=== PATIENT | female | born 1955 | race Caucasian/White ===

== ENCOUNTER 2016-08-07 18:46 | Inpatient (IN) | payer BC ==
--- NOTE | 2016-08-07 19:04 | PDOC ---
History of Present Illness - General History Source: Patient, EMS Exam Limitations: No Limitations - History of Present Illness Initial Comments: 08/07/16 19:46 The patient is a 61 year old female, BIBA with a significant past medical history of HTN and osteoarthritis, who presents to the emergency department with right hip pain since 3pm. As per EMS patient was working sitting, crossed her feet, and felt a pop in her right hip and pain. She reports after having a lot of pain has not been able to walk since. She ranks her pain intensity a 10/ 10 in her right hip. She reports now also having a deformity in her right thigh/ hip area. Patient reports just recently having a total right hip replacement ( performed by Dr.James Norton) about 2 weeks ago secondary to osteoarthritis. She reports since the surgery feeling fine with no problems or complications. She denies any lower extremity numbness and tingling. She denies any injury or recent trauma. She denies fever, chills, headache and dizziness. PAST SURGICAL HISTORY: RIGHT and LEFT THR. FAMILY HISTORY: No pertinent history. SOCIAL HISTORY: Patient lives with family and is employed. Current Smoker (half a pack a day). MEDICATIONS: Reviewed. ALLERGIES: As per nursing notes. ROS General: No fevers or chills, no weakness, no weight loss HEENT: No change in vision. No sore throat,. No ear pain CardioVascular: No chest pain or shortness of breath Respiratory:No cough, or wheezing. Gastrointestinal: No nausea, vomiting, diarrhea or constipation. No rectal bleeding Genitourinary: No dysuria, hematuria, or frequency Musculoskeletal: Yes right hip pain. No joint or muscle pain or swelling Neurologic: No headache, vertigo, dizziness or loss of consciousness Psychiatric: No depression Skin: No rashes or easy bruising Endocrine: no increased thirst or abnormal weight change Allergic: no skin or latex allergy All other systems reviewed and normal Exam: General: Well-nourished well-developed individual, in severe distress HEENT: Throat: Normal, tonsils normal, no erythema or exudate Neck: Supple, no meningeal signs, no lymphadenopathy Eyes: Pupils equal reactive and round, extraocular motion intact Chest: Nontender to palpation Cardiac: S1-S2 normal, regular rate and rhythm, no murmurs rubs or gallops Respiratory: Lungs clear to auscultation bilateral Abdomen: Soft, nondistended, normal bowel sounds, nontender to palpation diffusely Extremities:RLE externally rotated and shortened. Neurovascularly intact. Skin: No rashes Neuro: Alert and oriented x3, nonfocal exam, grossly intact. Psych: Normal mood and affect <Jeremias Montanez - Last Filed: 08/07/16 19:46> - General History Source: Patient Exam Limitations: No Limitations - History of Present Illness Initial Comments: 08/07/16 20:54 A portion of this note was documented by scribe services under my direction. I have reviewed the details of the note, within reason, and agree with the documentation. The case summary and management plan written by me. This is a 61-year-old female who is status post right hip replacement. Patient had a dual prosthesis and the inner portion of the prosthesis dislocated. Because of the nature of the prosthesis it will will need to be relocated and revised in the operating room. Patient was admitted under the hospitalist service and Dr. Mccann will take her to the OR for relocation and revision of the prosthesis. <Renea Uriarte I - Last Filed: 08/07/16 20:55> - General Chief Complaint: Pain Stated Complaint: RIGHT HIP PROTHESIS DISLOCATION Time Seen by Provider: 08/07/16 19:01 Past History <Jeremias Montanez - Last Filed: 08/07/16 19:46> - Past Medical History Anemia: No Asthma: No Cancer: No Cardiac Disorders: No CVA: No COPD: No CHF: No Dementia: No Diabetes: No GI Disorders: No Disorders: No HTN: Yes Hypercholesterolemia: No Liver Disease: No Seizures: No Thyroid Disease: No - Surgical History Abdominal Surgery: No Appendectomy: No Cardiac Surgery: No Cholecystectomy: No Lung Surgery: No Neurologic Surgery: No Orthopedic Surgery: Yes (L THR) - Psycho/Social/Smoking Cessation Hx Smoking History: Former smoker Have you smoked in the past 12 months: Yes If you are a former smoker, when did you quit?: 1 week ago Hx Alcohol Use: No Drug/Substance Use Hx: No Substance Use Type: None Hx Substance Use Treatment: No <Renea Uriarte I - Last Filed: 08/07/16 20:55> - Past Medical History Allergies/Adverse Reactions: Allergies Allergy/AdvReac Type Severity Reaction Status Date / Time No Known Allergies Allergy Verified 08/07/16 18:56 Home Medications: Ambulatory Orders Nebivolol HCl [Bystolic] 10 mg PO DAILY 07/16/16 Olmesartan/Amlodipin/Hcthiazid [Tribenzor 40-5-25 mg Tablet] 1 each PO DAILY 10/27 Aspirin [ASA -] 325 mg PO DAILY@0800 #40 tablet 07/23/16 Celecoxib [CeleBREX -] 200 mg PO BID #60 capsule 07/23/16 Multivitamins [Multivit ([facility] Formul[facility])] 1 tab PO DAILY tab 07/23/16 Oxycodone HCl/Acetaminophen [Percocet 5-325 mg Tablet] 1 - 2 tab PO Q4H PRN #60 tablet MDD 8 07/23/16 Pantoprazole Sodium [Protonix -] 40 mg PO DAILY #40 tablet.ec 07/23/16 Sennosides/Docusate Sodium [Pericolace -] 1 tablet PO BID tablet 07/23/16 Tramadol HCl [Ultram -] 50 mg PO Q4H PRN #90 tablet MDD 6 07/23/16 *Physical Exam - Vital Signs Last Vital Signs Temp Pulse Resp BP Pulse Ox 98.8 F 68 18 132/63 98 08/07/16 18:55 08/07/16 18:55 08/07/16 18:55 08/07/16 18:55 08/07/16 18:55 <Jeremias Montanez - Last Filed: 08/07/16 19:46> ED Treatment Course - LABORATORY CBC & Chemistry Diagram: 08/07/16 19:25 08/07/16 19:25 <Jeremias Montanez - Last Filed: 08/07/16 19:46> - LABORATORY CBC & Chemistry Diagram: 08/07/16 19:25 08/07/16 19:25 <Renea Uriarte I - Last Filed: 08/07/16 20:55> *DC/Admit/Observation/Transfer - Attestations Scribe Attestion: 08/07/16 19:20 Documentation prepared by Jeremias Montanez, acting as territory sales manager medical for Renea Uriarte MD. <O'Sabino,Jeremias - Last Filed: 08/07/16 19:46> - Discharge Dispostion Admit: Yes <Renea Uriarte I - Last Filed: 08/07/16 20:55> Diagnosis at time of Disposition: Dislocation of internal right hip prosthesis Qualifiers: Encounter type: initial encounter Qualified Code(s): T84.020A - Dislocation of internal right hip prosthesis, initial encounter - Discharge Dispostion Condition at time of disposition: Good - Referrals Referrals: Geovany Mccann MD [Primary Care Provider] -
[2016-08-07] MEDS ORDERED: morphine CARPU-JECT 2 MG/1 ML DISP.SYRIN IVPUSH ONE ×2 (19:07→20:05)
[2016-08-07] MEDS ORDERED: morphine CARPU-JECT 10 MG/1 ML DISP.SYRIN ONE (19:09)
[2016-08-07 19:42] LABS: BASOPHIL 0.7 % (0-2.0); EOSINOPHIL 1.1 % (0-4.5); MCH 29.8 pg (25.7-33.7); MCHC 32.8 g/dl (32.0-36.0); MEAN PLT VOLUME 7.9 fl (7.5-11.1); NEUTROPHILS 79.2 % (42.8-82.8); PLATELET COUNT 343 K/MM3 (134-434); RDW 13.2 % (11.6-15.6); WHITE BLOOD COUNT 10.5 K/mm3 (4.0-10.0)
[2016-08-07 21:26] LABS: ALBUMIN 3.7 g/dl (3.4-5.0); ANION GAP 11 (8-16); BILIRUBIN,TOTAL 0.2 mg/dL (0.2-1.0); CALCIUM 8.5 mg/dL (8.5-10.1); CO2 26 mmol/L (21-32); CREATININE 0.7 mg/dL (0.55-1.02); GLUCOSE,RANDOM 118 mg/dL (74-106); SGOT/AST 13 U/L (15-37); SGPT/ALT 22 U/L (12-78)
[2016-08-07 21:27] LABS: ALK PHOS 122 U/L (45-117)
[2016-08-07] MEDS ORDERED: ONDANSETRON 4 MG/2 ML VIAL IVPUSH PRN (21:48)
--- NOTE | 2016-08-07 21:49 | HP ---
CHIEF COMPLAINT: Right Hip Pain, Unable to Bear weight PCP: HISTORY OF PRESENT ILLNESS: This is a 61 y/o woman with a past medical history of Hypertension, OA. PSHx of : s/p R-THR (2 weeks ago), L- THR. Who presents to the emergency department with pain to right hip unable to bear weight x pm. Patient reports having R-THR [address] Geovany Mccann without incident. Patient states" I was sitting down at my desk at work I crossed my legs and I felt a pop". Patient reports being unable to bear weight on the extremity. Patient denies numbness or tingling to RLE. Patient denies fever. chills, cough, SOB, dizziness, headache, CP, AP, N/V/D, constipation, dysuria. ER course was notable for: (1) Xray R-Hip: Right Hip Dislocation (2) Glucose 118 (3) EKG- NSR with no ST or TWI Recent Travel: None PAST MEDICAL HISTORY: See HPI PAST SURGICAL HISTORY: See HPI Social History: Smoking: Cigarette 1/2 PPD x 10 yrs Alcohol: Socially- Wine Drugs: None Lives with spouse-employed Family History: Non-Contributory Allergies No Known Allergies Allergy (Verified 08/07/16 18:56) HOME MEDICATIONS: Medication Instructions Recorded Nebivolol HCl [Bystolic] 10 mg PO DAILY 07/16/16 Olmesartan/Amlodipin/Hcthiazid 1 each PO DAILY 07/16/16 [Tribenzor 40-5-25 mg Tablet] Aspirin [ASA -] 325 mg PO DAILY@0800 #40 tablet 07/23/16 Celecoxib [CeleBREX -] 200 mg PO BID #60 capsule 07/23/16 Multivitamins [Multivit ([facility] 1 tab PO DAILY tab 07/23/16 Formulary)] Oxycodone HCl/Acetaminophen 1 - 2 tab PO Q4H PRN #60 tablet 07/23/16 [Percocet 5-325 mg Tablet] MDD 8 Pantoprazole Sodium [Protonix -] 40 mg PO DAILY #40 tablet.ec 07/23/16 Sennosides/Docusate Sodium 1 tablet PO BID tablet 07/23/16 [Pericolace -] Tramadol HCl [Ultram -] 50 mg PO Q4H PRN #90 tablet MDD 6 07/23/16 REVIEW OF SYSTEMS CONSTITUTIONAL: Absent: fever, chills, diaphoresis, generalized weakness, malaise, loss of appetite, weight change HEENT: Absent: rhinorrhea, nasal congestion, throat pain, throat swelling, difficulty swallowing, mouth swelling, ear pain, eye pain, visual changes CARDIOVASCULAR: Absent: chest pain, syncope, palpitations, irregular heart rate, lightheadedness , peripheral edema RESPIRATORY: Absent: cough, shortness of breath, dyspnea with exertion, orthopnea, wheezing, stridor, hemoptysis GASTROINTESTINAL: Absent: abdominal pain, abdominal distension, nausea, vomiting, diarrhea, constipation, melena, hematochezia GENITOURINARY: Absent: dysuria, frequency, urgency, hesitancy, hematuria, flank pain, genital pain MUSCULOSKELETAL: right hip pain Absent: myalgia, arthralgia, joint swelling, back pain, neck pain SKIN: Absent: rash, itching, pallor HEMATOLOGIC/IMMUNOLOGIC: Absent: easy bleeding, easy bruising, lymphadenopathy, frequent infections ENDOCRINE: Absent: unexplained weight gain, unexplained weight loss, heat intolerance, cold intolerance NEUROLOGIC: Absent: headache, focal weakness or paresthesias, dizziness, unsteady gait, seizure, mental status changes, bladder or bowel incontinence PSYCHIATRIC: Absent: anxiety, depression, suicidal or homicidal ideation, hallucinations. PHYSICAL EXAMINATION Vital Signs - 24 hr 08/07/16 08/07/16 18:55 20:30 Temperature 98.8 F Pulse Rate 68 Pulse Rate [ 70 Apical] Respiratory 18 17 Rate Blood Pressure 132/63 Blood Pressure 130/58 [Right Arm] O2 Sat by Pulse 98 97 Oximetry (%) GENERAL: Awake, alert, and fully oriented, in no acute distress. HEAD: Normal with no signs of trauma. EYES: Pupils equal, round and reactive to light, extraocular movements intact, sclera anicteric, conjunctiva clear. No lid lag. EARS, NOSE, THROAT: Ears normal, nares patent, oropharynx clear without exudates. Moist mucous membranes. NECK: Normal range of motion, supple without lymphadenopathy, JVD, or masses. LUNGS: Breath sounds equal, clear to auscultation bilaterally. No wheezes, and no crackles. No accessory muscle use. HEART: Regular rate and rhythm, normal S1 and S2 without murmur, rub or gallop. ABDOMEN: Soft, nontender, not distended, normoactive bowel sounds, no guarding, no rebound, no masses. No hepatomegaly or splenomegaly. MUSCULOSKELETAL: LROM RLE. + right hip tenderness. +external rotation and shortening of right leg. Normal range of motion RUE, LUE, LLE joints. No bony deformities. No CVA tenderness. UPPER EXTREMITIES: 2+ pulses, warm, well-perfused. No cyanosis. No clubbing. Cap refill <2 seconds. No peripheral edema. LOWER EXTREMITIES: 2+ pulses, warm, well-perfused. No calf tenderness. +1 pitting to R>L peripheral edema. NEUROLOGICAL: Cranial nerves II-XII intact. Normal speech. Gait not observed. PSYCHIATRIC: Cooperative. Good eye contact. Appropriate mood and affect. SKIN: Warm, dry, normal turgor, no rashes or lesions noted. Laboratory Results - last 24 hr 08/07/16 08/07/16 19:25 19:25 WBC 10.5 H RBC 3.68 Hgb 11.0 Hct 33.5 MCV 91.0 MCHC 32.8 RDW 13.2 Plt Count 343 D MPV 7.9 Neutrophils % 79.2 Lymphocytes % 13.4 Monocytes % 5.6 Eosinophils % 1.1 Basophils % 0.7 Sodium 143 Potassium 4.1 Chloride 106 Carbon Dioxide 26 Anion Gap 11 BUN 27 H Creatinine 0.7 Creat Clearance w eGFR > 60 Random Glucose 118 H Calcium 8.5 Total Bilirubin 0.2 AST 13 L ALT 22 Alkaline Phosphatase 122 H Total Protein 7.0 Albumin 3.7 ASSESSMENT/PLAN: This is a 61 y/o female with a PMHx of HTN, OA, s/p R-THR. Presented to the ED with R- Hip pain. Admitted for Dislocation of the Right Prosthesis for further evaluation of their emergent condition Plan: 1. Ortho: Dislocation of the Right Prosthesis - s/p R-THR x 2 weeks - Xray R- hip- Dislocation of the prosthesis with the femoral head superior to the acetabulum. No fx - Ortho following- OR tomorrow - Morphine given in ED - Pre-op labs added- Type N Screen, PT/INR - Chest Xray-pending - EKG- NSR no ST or TWI abnormalities - NPO - Continue Morphine prn - Zofran prn - PT, when cleared by Ortho - DVT Prophylaxis - Incentive spirometry - CBC, BMP in am - Monitor vitals 2. HTN - Monitor BP - Hold home med for now, restart post surgery 3. Elevated Glucose level - Likely secondary to metabolic syndrome - HgBA1C in am 4. F/E/N - NS@60cc/hr - Replete lytes prn - NPO 5. DVT Prophylaxis - SCDs - Lovenox SQ Code Status: Full Code Problem List - Problem (1) Dislocation of internal right hip prosthesis Code(s): T84.020A - DISLOCATION OF INTERNAL RIGHT HIP PROSTHESIS, INIT ENCNTR Qualifiers: Encounter type: initial encounter Qualified Code(s): T84.020A - Dislocation of internal right hip prosthesis, initial encounter (2) Osteoarthritis of right hip Code(s): M16.11 - UNILATERAL PRIMARY OSTEOARTHRITIS, RIGHT HIP Qualifiers: Osteoarthritis type: primary Qualified Code(s): M16.11 - Unilateral primary osteoarthritis, right hip (3) HTN (hypertension) Code(s): I10 - ESSENTIAL (PRIMARY) HYPERTENSION (4) Elevated glucose level Code(s): R73.09 - OTHER ABNORMAL GLUCOSE (5) DVT prophylaxis Code(s): NBF6271 - Visit type - Emergency Visit Emergency Visit: Yes ED Registration Date: 08/07/16 Care time: The patient presented to the Emergency Department on the above date and was hospitalized for further evaluation of their emergent condition. - New Patient This patient is new to me today: Yes Date on this admission: 08/07/16 - Critical Care Critical Care patient: No
[2016-08-07] MEDS ORDERED: ROPIVICAINE 0.2%/MORPH PF/KETOROLAC - 51ML DISP.SYRINGE IA ONE (22:29)
[2016-08-07] MEDS ORDERED: oxyCODONE HCL 5 MG TABLET PO PRN ×2 (22:31→22:33)
[2016-08-07] MEDS ORDERED: MAG HYDROX/AL HYDROX/SIMETH 355 ML ORAL.SUSP PO PRN (22:31)
[2016-08-07] MEDS ORDERED: ONDANSETRON 4 MG/2 ML VIAL IVPB PRN (22:31)
[2016-08-07] MEDS ORDERED: oxyCODONE HCL 10 MG SUSTAINED ACTING TABLET PO ONE (22:33)
[2016-08-07] MEDS ORDERED: LACTATED RINGERS SOLUTION 1,000 ML IV SCH (22:45)
[2016-08-07 22:51] LABS: INR 1.09 (0.82-1.09); PROTHROMBIN TIME (PATIENT) 11.9 SEC (10.2-13.0)
[2016-08-07] MEDS: ACETAMINOPHEN 325 MG TABLET (FP) PO SCH (23:00)
[2016-08-07] MEDS: traMADol HCL 50 MG TABLET PO SCH (23:00)
[2016-08-07] MEDS: morphine CARPU-JECT 4 MG/1 ML DISP.SYRIN IVPUSH PRN (23:45)
[2016-08-07 23:56] VITALS: BMI 32.3
[2016-08-08] MEDS: DEXTROSE 5%-0.45% SALINE 1,000 ML IV SCH (00:12)
[2016-08-08] MEDS: CEFAZOLIN 1 GM/D5W 50 ML IVPB SCH ×3 (03:51→15:27)
[2016-08-08] MEDS: traMADol HCL 50 MG TABLET PO SCH ×3 (05:06→20:44)
[2016-08-08] MEDS: ACETAMINOPHEN 325 MG TABLET (FP) PO SCH ×4 (05:06→22:23)
[2016-08-08] MEDS: morphine CARPU-JECT 4 MG/1 ML DISP.SYRIN IVPUSH PRN (05:45)
[2016-08-08 08:27] LABS: BASOPHIL 0.6 % (0-2.0); EOSINOPHIL 2.3 % (0-4.5); MCH 29.4 pg (25.7-33.7); MCHC 32.4 g/dl (32.0-36.0); MEAN CELL VOLUME 90.9 fl (80-96); MEAN PLT VOLUME 7.9 fl (7.5-11.1); NEUTROPHILS 70.3 % (42.8-82.8); PLATELET COUNT 280 K/MM3 (134-434); RDW 12.8 % (11.6-15.6); WHITE BLOOD COUNT 8.2 K/mm3 (4.0-10.0)
[2016-08-08 08:33] LABS: CALCIUM 8.5 mg/dl (8.4-10.2); CREATININE 0.7 mg/dl (0.6-1.3)
--- NOTE | 2016-08-08 09:05 | CONSULT ---
Consult Consult Specialty:: Orthopedics Reason for Consultation:: Right hip dislocation - Past Medical History Cardio/Vascular: Yes: HTN ...: No - Past Surgical History Past Surgical History: Yes: Joint Replacement - Alcohol/Substance Use Hx Alcohol Use: No - Smoking History Smoking history: Former smoker Have you smoked in the past 12 months: Yes Aproximately how many cigarettes per day: 10 If you are a former smoker, when did you quit?: 1 week ago Home Medications - Allergies Allergies/Adverse Reactions: Allergies Allergy/AdvReac Type Severity Reaction Status Date / Time No Known Allergies Allergy Verified 08/07/16 18:56 - Home Medications Home Medications: Ambulatory Orders Nebivolol HCl [Bystolic] 10 mg PO DAILY 07/16/16 Olmesartan/Amlodipin/Hcthiazid [Tribenzor 40-5-25 mg Tablet] 1 each PO DAILY 10/27 Aspirin [ASA -] 325 mg PO DAILY@0800 #40 tablet 07/23/16 Celecoxib [CeleBREX -] 200 mg PO BID #60 capsule 07/23/16 Multivitamins [Multivit ([facility] Formul[facility])] 1 tab PO DAILY tab 07/23/16 Oxycodone HCl/Acetaminophen [Percocet 5-325 mg Tablet] 1 - 2 tab PO Q4H PRN #60 tablet MDD 8 07/23/16 Pantoprazole Sodium [Protonix -] 40 mg PO DAILY #40 tablet.ec 07/23/16 Sennosides/Docusate Sodium [Pericolace -] 1 tablet PO BID tablet 07/23/16 Tramadol HCl [Ultram -] 50 mg PO Q4H PRN #90 tablet MDD 6 07/23/16 Physical Exam Vital Signs: Vital Signs Temperature 98.7 F 08/08/16 05:44 Pulse Rate 67 08/08/16 05:44 Respiratory Rate 17 08/08/16 08:55 Blood Pressure 127/38 08/08/16 05:44 O2 Sat by Pulse Oximetry (%) 96 08/08/16 08:55 Labs: CBC, BMP 08/08/16 07:27 08/08/16 07:27 Assessment/Plan 61yo female s/p right LEE 07/21/16. Pt did well postop, felt so much better that she returned to work this week, 2 wks after surgery. She was sitting at her desk and crossed her legs and the hip dislocated. BIBA to ER. Pt seen and examined by me in ER last night. Afebrile Gen: NAD, awake/alert/pleasant RLE: shortened, externally rotated. 5/5 GS/TA/EHL/FHL SILT L2-S1 toes warm Xray right hip - prosthetic hip dislocation. She has a dual mobility head in place and it appears that she has had an intraprosthetic dislocation, as I do not see the outer plastic head still attached to the smaller inner metal head. A/P 61yo female with right LEE dislocation 1. Findings discussed with the pt and her . 2. To me this looks like an intraprosthetic dislocation. That would not be reducible in the ER and would require surgery to revise it. 3. Pt on the OR schedule for 3pm today 4. STAT CT right hip ordered to evaluate intraprosthetic dislocation - specifically, if the outer plastic head has , is it still in the acetabulum or is it lodged in the soft tissues somewhere? If so, where is it because it will need to be retrieved surgically. 5. NPO
[2016-08-08] MEDS: NICOTINE 14 MG/24 HOURS TOPICAL PATCH TD SCH (09:10)
[2016-08-08] MEDS: PANTOPRAZOLE 40 MG TABLET (FP) PO SCH (09:12)
[2016-08-08] MEDS ORDERED: HYDROmorphone HCL CARPU-JECT 2 MG/1 ML DISP.SYRIN IVPB ONE (09:15)
--- NOTE | 2016-08-08 09:58 | PN ---
[id number] is a 61y/o female with past medical history of Hypertension, OA. PSHx of: s/p R-THR (07/21/16), L- THR. patient was admitted from the emergency department for a right hip dislocation. Vital Signs Period Temp Pulse Resp BP Sys/Martinez Pulse Ox Last 24 Hr 98.4 F-98.7 F 67-70 16-17 119-127/38-58 96-96 GENERAL: The patient is awake, alert, and fully oriented, anxious . HEAD: Normal with no signs of trauma. EYES: PERRL, extraocular movements intact, sclera anicteric, conjunctiva clear. No ptosis. ENT: Ears normal, nares patent, oropharynx clear without exudates, moist mucous membranes. NECK: Trachea midline, full range of motion, supple. LUNGS: Breath sounds equal, clear to auscultation bilaterally, no wheezes, no crackles, no accessory muscle use. HEART: Regular rate and rhythm, S1, S2 without murmur, rub or gallop. ABDOMEN: Soft, nontender, nondistended, normoactive bowel sounds, no guarding, no rebound, no hepatosplenomegaly, no masses. EXTREMITIES: 2+ pulses, warm, well-perfused, no edema. RIGHT LOWER EXTREMITY: right leg externally rotated and shortened, less than 3 second capillary refill, + 3 pedal pulse NEUROLOGICAL: Cranial nerves II through XII grossly intact. Normal speech, gait not observed. PSYCH: Normal mood, normal affect. SKIN: Warm, dry, normal turgor, no rashes or lesions noted Laboratory Results - last 24 hr 08/07/16 08/07/16 08/07/16 22:13 22:13 22:13 WBC RBC Hgb Hct MCV MCHC RDW Plt Count MPV Neutrophils % Lymphocytes % Monocytes % Eosinophils % Basophils % INR 1.09 Sodium Potassium Chloride Carbon Dioxide Anion Gap BUN Creatinine Random Glucose Calcium Blood Type A POSITIVE A POSITIVE Antibody Screen Negative 08/08/16 08/08/16 07:27 07:27 WBC 8.2 RBC 3.31 L Hgb 9.8 L D Hct 30.1 L MCV 90.9 MCHC 32.4 RDW 12.8 Plt Count 280 MPV 7.9 Neutrophils % 70.3 Lymphocytes % 19.8 D Monocytes % 7.0 Eosinophils % 2.3 D Basophils % 0.6 INR Sodium 139 Potassium 3.8 Chloride 104 Carbon Dioxide 27 Anion Gap 8 BUN 23 H Creatinine 0.7 Random Glucose 118 H Calcium 8.5 Blood Type Antibody Screen Active Medications Generic Name Dose Route Start Last Admin Trade Name Freq PRN Reason Stop Dose Admin Acetaminophen 650 mg 08/07/16 22:45 08/08/16 10:00 Tylenol - PO 08/10/16 22:31 650 mg Q6H KASH Administration Al Hydroxide/Mg Hydroxide 30 ml 08/07/16 22:31 Mylanta Suspension - PO Q6HPO PRN DYSPEPSIA Amlodipine Besylate 5 mg 08/08/16 11:15 Norvasc - PO DAILY KASH Dextrose/Sodium Chloride 1,000 mls @ 75 mls/hr 08/07/16 21:45 08/08/16 00:12 D5-1/2ns - IV 75 mls/hr ASDIR KASH Administration Cefazolin Sodium 50 mls @ 100 mls/hr 08/08/16 03:00 08/08/16 09:12 Ancef 1 Gm Premixed Ivpb - IVPB 08/08/16 15:29 100 mls/hr Q6H-IV KASH Administration Multivitamins/Minerals/Vitamin C 1 tab 08/08/16 11:00 Tab-A-Vit - PO DAILY KASH Nebivolol 10 mg 08/08/16 11:00 Bystolic - PO DAILY KASH Nicotine 14 mg 08/08/16 10:00 08/08/16 09:10 Nicoderm Patch - TD 14 mg DAILY KASH Administration Ondansetron HCl 4 mg 08/07/16 21:48 Zofran Injection IVPUSH Q6H PRN NAUSEA AND/OR VOMITING Ondansetron HCl 4 mg 08/07/16 22:31 Zofran Injection IVPB Q6H PRN NAUSEA Oxycodone HCl 10 mg 08/08/16 10:00 08/08/16 10:50 Oxycontin - PO Not Given BID KASH Oxycodone HCl 5 mg 08/07/16 22:31 Roxicodone - PO 08/10/16 22:32 Q4H PRN PAIN LEVEL 1-5 Pantoprazole Sodium 40 mg 08/08/16 10:00 08/08/16 09:12 Protonix - PO 40 mg DAILY KASH Administration Valsartan 320 mg 08/09/16 10:00 Diovan - PO DAILY KASH IMAGING chest xray, no infilitrates no effusion noted xray of hip/pelvis- dislocation of prosthesis CT/lower extremity w/o contrast: superior and lateral subluxation of the prosthetic right femoral head into the soft tissue ASSESSMENT/PLAN: 1) ortho: - s/p right THR (07/21/16), CT scan of lower extremity reviewed, case discussed with orthopedist Dr. Mccann, pending OR today - prn oxycodone with standing dose oxycodone - keep npo ivf - incentive spirometer 2) CARD hypertension - continue diovan (subsition for benicar), bystolic and norvasc - b/p at goal - ekg, nsr normal axis, no ischemic changes 3) GI - PMH of gerd continue protonix f/e/n - d5ns @ 75ml/hr - replete lytes prn ppx - protonix - hold ac for pending or - scd - incentive spirometer dispo: requires inpatient care full code Visit type - Emergency Visit Emergency Visit: Yes ED Registration Date: 08/07/16 Care time: The patient presented to the Emergency Department on the above date and was hospitalized for further evaluation of their emergent condition. - New Patient This patient is new to me today: No - Critical Care Critical Care patient: No - Discharge Referral Referred to [facility] Med [facility] No
--- NOTE | 2016-08-08 10:00 | EKG ---
Test Reason : Blood Pressure : / mmHG Vent. Rate : 071 BPM Atrial Rate : 071 BPM P-R Int : 170 ms QRS Dur : 096 ms QT Int : 422 ms P-R-T Axes : 047 013 002 degrees QTc Int : 458 ms NORMAL SINUS RHYTHM NO PREVIOUS ECGS AVAILABLE Confirmed by IGOR RICHARD MD ([id number]) on 08/08/2016 9:59:51 AM Referred By: CARIN Confirmed By:IGOR RICHARD MD
[2016-08-08 10:14] LABS: PH,URINE 5.5 (4.5-8); URINE APPEARANCE Clear; URINE BILIRUBIN Negative (NEGATIVE); URINE BLOOD Negative (NEGATIVE); URINE COLOR YELLOW; URINE GLUCOSE (UA) Negative (NEGATIVE); URINE KETONE Negative (NEGATIVE); URINE LEUK ESTERASE Negative (NEGATIVE); URINE NITRITE Negative (NEGATIVE); URINE PROTEIN Negative (NEGATIVE); URINE UROBILINOGEN 0.2 E.U/dl (0.2-1.0)
[2016-08-08] MEDS: oxyCODONE HCL 10 MG SUSTAINED ACTING TABLET PO SCH ×2 (10:50→22:23)
[2016-08-08] MEDS ORDERED: ceFAZolin SODIUM 1 GM VIAL ONE ×2 (14:14→15:55)
[2016-08-08] MEDS: MULTIVITAMINS (DAILY MVI) TABLET (FP) PO SCH (15:27)
[2016-08-08] MEDS: amLODIPine BESYLATE 5 MG TABLET (FP) PO SCH (15:28)
[2016-08-08] MEDS: NEBIVOLOL 10 MG TABLET (FP) PO SCH (15:28)
[2016-08-08] MEDS ORDERED: ONDANSETRON 4 MG/2 ML VIAL ONE (15:40)
[2016-08-08] MEDS ORDERED: ROCURONIUM BROMIDE 50 MG/5 ML VIAL ONE ×2 (15:40→17:00)
[2016-08-08] MEDS ORDERED: MIDAZOLAM HCL 2 MG/2 ML SINGLE DOSE VIAL ONE (15:40)
[2016-08-08] MEDS ORDERED: PROPOFOL 20 ML ONE (15:40)
[2016-08-08] MEDS ORDERED: DEXAMETHASONE SOD PHOSPHATE 4 MG/1 ML VIAL ONE (15:40)
[2016-08-08] MEDS ORDERED: SUCCINYLCHOLINE CHLORIDE 200 MG/10 ML VIAL ONE (15:41)
[2016-08-08] MEDS ORDERED: ROPIVICAINE 0.2%/MORPH PF/KETOROLAC - 51ML DISP.SYRINGE IA ONE ×2 (16:37→17:12)
[2016-08-08] MEDS ORDERED: BUPIVACAINE HCL/PF 0.5% (5MG/ML) 10 ML VIAL ONE (16:37)
[2016-08-08] MEDS ORDERED: TRANEXAMIC ACID 1000 MG/10 ML VIAL ONE ×2 (16:42)
[2016-08-08] MEDS ORDERED: VANCOMYCIN 1,000 MG VIAL (RESTRICTED TO ID ONLY) IVPB ONE (17:11)
[2016-08-08] MEDS ORDERED: BUPIVACAINE HCL/PF 0.5% (5MG/ML) 10 ML VIAL IJ ONE (17:11)
[2016-08-08] MEDS ORDERED: TRANEXAMIC ACID 1000 MG/10 ML VIAL IVPUSH ONE (17:19)
[2016-08-08] MEDS ORDERED: GLYCOPYRROLATE 0.2 MG/1 ML VIAL ONE (18:00)
[2016-08-08] MEDS ORDERED: NEOSTIGMINE METHYLSULFATE 0.5 MG/ML - 10 ML MDV ONE (18:00)
[2016-08-08] MEDS ORDERED: HYDROmorphone HCL CARPU-JECT 1 MG/1 ML DISP.SYRIN IVPUSH PRN (18:50)
--- NOTE | 2016-08-08 19:00 | OP ---
Operative Note - Note: Operative Date: 08/08/16 Pre-Operative Diagnosis: Right prosthetic hip dislocation Operation: Open reduction of right hip dislocation with exchange of head ball. Post-Operative Diagnosis: Same as Pre-op Surgeon: Geovany Mccann Anesthesia: General, Local Estimated Blood Loss (mls): 150
[2016-08-08] MEDS ORDERED: VANCOMYCIN 1,250 MG in DEXTROSE 5%-WATER - 250 ML IVPB ONE (19:01)
[2016-08-08] MEDS ORDERED: MAG HYDROX/AL HYDROX/SIMETH 30 ML UNIT-DOSE CUP PO PRN (19:01)
[2016-08-08] MEDS ORDERED: MAGNESIUM HYDROX 2400MG/30ML ORAL SUSPENSION 30 ML CUP PO PRN (19:01)
[2016-08-08] MEDS ORDERED: oxyCODONE HCL 5 MG TABLET PO PRN (19:07)
[2016-08-08] MEDS ORDERED: LACTATED RINGERS SOLUTION 1,000 ML IV SCH (19:15)
[2016-08-08] MEDS: KETOROLAC TROMETHAMINE 30 MG/1 ML VIAL IVPUSH SCH (19:40)
[2016-08-08] MEDS: CELECOXIB 200 MG CAPSULE PO SCH (22:22)
[2016-08-08] MEDS: GABAPENTIN 300 MG CAPSULE (FP) PO SCH (22:22)
[2016-08-08] MEDS: SENNOSIDES/DOCUSATE COMBO (SENNA PLUS) TABLET (UD) PO SCH (22:23)
[2016-08-09] MEDS: KETOROLAC TROMETHAMINE 30 MG/1 ML VIAL IVPUSH SCH ×3 (00:39→13:25)
[2016-08-09] MEDS: traMADol HCL 50 MG TABLET PO SCH ×4 (00:39→20:15)
[2016-08-09] MEDS: CEFAZOLIN 2 GM in DEXTROSE 5%-WATER - 50 ML IVPB SCH ×2 (03:30→10:07)
[2016-08-09] MEDS: ACETAMINOPHEN 325 MG TABLET (FP) PO SCH ×4 (05:00→22:12)
[2016-08-09] MEDS: ASPIRIN 325 MG TABLET PO SCH (08:00)
[2016-08-09 08:34] LABS: CALCIUM 8.8 mg/dl (8.4-10.2); CREATININE 0.8 mg/dl (0.6-1.3)
[2016-08-09 08:40] LABS: MCH 29.7 pg (25.7-33.7); MCHC 33.8 g/dl (32.0-36.0); MEAN PLT VOLUME 7.9 fl (7.5-11.1); PLATELET COUNT 264 K/MM3 (134-434); RDW 13.1 % (11.6-15.6); WHITE BLOOD COUNT 9.6 K/mm3 (4.0-10.0)
[2016-08-09] MEDS: SENNOSIDES/DOCUSATE COMBO (SENNA PLUS) TABLET (UD) PO SCH (10:00)
[2016-08-09] MEDS: NEBIVOLOL 10 MG TABLET (FP) PO SCH (10:08)
[2016-08-09] MEDS: CELECOXIB 200 MG CAPSULE PO SCH ×2 (10:08→22:12)
[2016-08-09] MEDS: VALSARTAN 160 MG TABLET (UD) PO SCH (10:08)
[2016-08-09] MEDS: NICOTINE 14 MG/24 HOURS TOPICAL PATCH TD SCH (10:09)
[2016-08-09] MEDS: GABAPENTIN 300 MG CAPSULE (FP) PO SCH ×2 (10:09→22:12)
[2016-08-09] MEDS: amLODIPine BESYLATE 5 MG TABLET (FP) PO SCH (10:10)
[2016-08-09] MEDS: PANTOPRAZOLE 40 MG TABLET (FP) PO SCH (10:10)
[2016-08-09] MEDS: MULTIVITAMINS (DAILY MVI) TABLET (FP) PO SCH (10:10)
[2016-08-09] MEDS ORDERED: VANCOMYCIN 1,250 MG in DEXTROSE 5%-WATER - 250 ML IVPB SCH (11:00)
--- NOTE | 2016-08-09 11:04 | PN ---
Progress Note (short form) - Note Progress Note: Pt seen and examined. Comfortable. No complaints. AVSS Selected Entries 08/09/16 06:00 Temperature 99.1 F Pulse Rate 70 Respiratory 19 Rate Blood Pressure 141/55 O2 Sat by Pulse 95 Oximetry (%) Laboratory Tests 08/09/16 08/09/16 07:48 07:48 WBC 9.6 Hgb 9.0 L Hct 26.7 L Plt Count 264 Sodium 139 Potassium 4.2 Chloride 104 Carbon Dioxide 27 Anion Gap 8 BUN 27 H Creatinine 0.8 Random Glucose 108 H Calcium 8.8 Gen: NAD, AAO RLE: c/d/i, NVID A/P 61yo female POD#1 s/p open reduction of right prosthetic hip dislocation with revision to higher offset head ball 1. PT/OOB - WBAT RLE 2. Do not externally rotate right hip past 30 degrees for 6 weeks. 3. Plan for d/c home tomorrow with home PT - will need to set this up again because pt refused home pt appt when they called 2 weeks ago because she felt that she didn't need it. I stressed to her that it is important to have the therapist come so that they can observe her ambulating and correct any poor form.
[2016-08-09] MEDS: oxyCODONE HCL 10 MG SUSTAINED ACTING TABLET PO SCH (11:52)
--- NOTE | 2016-08-09 20:18 | PN ---
Physical Exam: SUBJECTIVE: Patient seen and examined at bedside. Has minimal amount of pain. OBJECTIVE: Vital Signs Period Temp Pulse Resp BP Sys/Martinez Pulse Ox Last 24 Hr 98.5 F-99.1 F 64-70 12-19 108-143/55-59 94-100 GENERAL: The patient is awake, alert, and fully oriented, in no acute distress. HEAD: Normal with no signs of trauma. EYES: PERRL, extraocular movements intact, sclera anicteric, conjunctiva clear. No ptosis. LUNGS: Breath sounds equal, clear to auscultation bilaterally, no wheezes, no crackles, no accessory muscle use. HEART: Regular rate and rhythm, S1, S2 without murmur, rub or gallop. ABDOMEN: Soft, nontender, nondistended, normoactive bowel sounds, no guarding, no rebound EXTREMITIES: 2+ pulses, warm, well-perfused, no edema. TEDs & SCDs; surgical dressing in place right hip, c/d/i NEUROLOGICAL: Cranial nerves II through XII grossly intact. Normal speech, gait not observed. Laboratory Results - last 24 hr 08/09/16 08/09/16 07:48 07:48 WBC 9.6 RBC 3.04 L Hgb 9.0 L Hct 26.7 L MCV 88.0 MCHC 33.8 RDW 13.1 Plt Count 264 MPV 7.9 Sodium 139 Potassium 4.2 Chloride 104 Carbon Dioxide 27 Anion Gap 8 BUN 27 H Creatinine 0.8 Random Glucose 108 H Calcium 8.8 ASSESSMENT/PLAN: 61 year-old woman with a PMH of HTN, OA, s/p right THR (07/21/16) s/p right prosthetic hip dislocation s/p open reduction with exchange of hip ball. Right prosthetic hip dislocation s/p open reduction with exchange of hip ball --doing well --afebrile, no leukocytosis, wound c/d/i --cleared by surgery for discharge tomorrow Hypertension --BP well-controlled --continue valsartan, bystolic, amlodipine F/E/N Fluids: PO intake adequate Electrolytes: replete as indicated Nutrition: low sodium diet DVT prophylaxis: SCDs, TEDs Dispo: continues to require inpatient care. Likely discharge tomorrow with PT. Full Code. Visit type - Emergency Visit Emergency Visit: Yes ED Registration Date: 08/07/16 Care time: The patient presented to the Emergency Department on the above date and was hospitalized for further evaluation of their emergent condition. - New Patient This patient is new to me today: Yes Date on this admission: 08/09/16 - Critical Care Critical Care patient: No
[2016-08-10] MEDS: DEXTROSE 5%-0.45% SALINE 1,000 ML IV SCH (00:52)
[2016-08-10] MEDS: SENNOSIDES/DOCUSATE COMBO (SENNA PLUS) TABLET (UD) PO SCH ×2 (00:53→09:52)
[2016-08-10] MEDS: traMADol HCL 50 MG TABLET PO SCH ×2 (01:53→08:43)
[2016-08-10] MEDS: ACETAMINOPHEN 325 MG TABLET (FP) PO SCH ×2 (05:38→09:56)
[2016-08-10 06:20] VITALS: BP 136/58; PULSE 65; TEMP 98.6
[2016-08-10 07:41] LABS: MCH 29.7 pg (25.7-33.7); MCHC 32.5 g/dl (32.0-36.0); MEAN CELL VOLUME 91.3 fl (80-96); MEAN PLT VOLUME 8.4 fl (7.5-11.1); PLATELET COUNT 223 K/MM3 (134-434); RDW 13.4 % (11.6-15.6); WHITE BLOOD COUNT 7.2 K/mm3 (4.0-10.0)
[2016-08-10 08:00] LABS: CALCIUM 8.4 mg/dl (8.4-10.2); CREATININE 0.6 mg/dl (0.6-1.3)
[2016-08-10] MEDS: ASPIRIN 325 MG TABLET PO SCH (08:43)
[2016-08-10] MEDS ORDERED: PT OWN MED DRAWER 7, Y5N ONE (09:44)
[2016-08-10] MEDS: amLODIPine BESYLATE 5 MG TABLET (FP) PO SCH (09:52)
[2016-08-10] MEDS: GABAPENTIN 300 MG CAPSULE (FP) PO SCH (09:53)
[2016-08-10] MEDS: PANTOPRAZOLE 40 MG TABLET (FP) PO SCH (09:53)
[2016-08-10] MEDS: NEBIVOLOL 10 MG TABLET (FP) PO SCH (09:53)
[2016-08-10] MEDS: MULTIVITAMINS (DAILY MVI) TABLET (FP) PO SCH (09:53)
[2016-08-10] MEDS: CELECOXIB 200 MG CAPSULE PO SCH (09:53)
[2016-08-10] MEDS: VALSARTAN 160 MG TABLET (UD) PO SCH (09:56)
[2016-08-10] MEDS: NICOTINE 14 MG/24 HOURS TOPICAL PATCH TD SCH (09:57)
--- NOTE | 2016-08-12 10:24 | PATH ---
Surgical Pathology Report Patient Name: ROSALINO FERRER Med. Rec. #: [id number] /Age/Gender: 1955 (Age: 61) / F Account: [id number] Location: COUNTS INCLUDE 234 BEDS AT THE [facility] MED-SURG Taken: 08/08/2016 Received: 08/11/2016 Reported: 08/12/2016 Physicians: Geovany Mccann M.D. Specimen(s) Received RIGHT HIP PROSTHETIC HEAD BALL Clinical History Right hip prosthesis dislocation Final Diagnosis CLINICAL NURSE EDUCATOR, RIGHT HIP, REMOVAL: CLINICAL NURSE EDUCATOR CONSISTENT WITH PORTION OF HIP PROSTHESIS (GROSS ONLY). Electronically Signed Son Biswas M.D. Gross Description Received in formalin, labeled "right hip prosthetic head ball," is a 3.5 cm in diameter white plastic and ozuna metallic device, consistent with a hip prosthesis. No soft tissue is present. No sections are submitted, gross only. /08/11/2016 saudi08/11/2016
--- NOTE | 2016-08-12 18:09 | DS ---
Physical Exam: SUBJECTIVE: Patient seen and examined sitting on edge of bed. Observed walking hallway with PT. OBJECTIVE: Vital Signs Temperature 98.6 F 08/10/16 06:19 Pulse Rate 65 08/10/16 06:19 Respiratory Rate 18 08/10/16 06:19 Blood Pressure 136/58 08/10/16 06:19 O2 Sat by Pulse Oximetry (%) 94 L 08/10/16 06:19 GENERAL: The patient is awake, alert, and fully oriented, in no acute distress. HEAD: Normal with no signs of trauma. EYES: PERRL, extraocular movements intact, sclera anicteric, conjunctiva clear. No ptosis. LUNGS: Breath sounds equal, clear to auscultation bilaterally, no wheezes, no crackles, no accessory muscle use. HEART: Regular rate and rhythm, S1, S2 without murmur, rub or gallop. ABDOMEN: Soft, nontender, nondistended, normoactive bowel sounds, no guarding, no rebound EXTREMITIES: 2+ pulses, warm, well-perfused, no edema. TEDs & SCDs; surgical dressing in place right hip, c/d/i NEUROLOGICAL: Cranial nerves II through XII grossly intact. Normal speech, gait not observed. LABS CBCD WBC 7.2 K/mm3 (4.0-10.0) 08/10/16 05:45 RBC 3.04 M/mm3 (3.60-5.2) L 08/10/16 05:45 Hgb 9.0 GM/dl (10.7-15.3) L 08/10/16 05:45 Hct 27.8 % (32.4-45.2) L 08/10/16 05:45 MCV 91.3 fl (80-96) 08/10/16 05:45 MCHC 32.5 g/dl (32.0-36.0) 08/10/16 05:45 RDW 13.4 % (11.6-15.6) 08/10/16 05:45 Plt Count 223 K/MM3 (134-434) 08/10/16 05:45 MPV 8.4 fl (7.5-11.1) 08/10/16 05:45 CMP Sodium 140 mmol/L (136-145) 08/10/16 05:45 Potassium 4.0 mmol/L (3.5-5.1) 08/10/16 05:45 Chloride 105 mmol/L (98-107) 08/10/16 05:45 Carbon Dioxide 28 mmol/L (22-28) 08/10/16 05:45 Anion Gap 7 (8-16) L 08/10/16 05:45 BUN 24 mg/dl (7-18) H 08/10/16 05:45 Creatinine 0.6 mg/dl (0.6-1.3) D 08/10/16 05:45 Creat Clearance w eGFR > 60 (>60) 08/07/16 19:25 Calcium 8.4 mg/dl (8.4-10.2) 08/10/16 05:45 Total Bilirubin 0.2 mg/dL (0.2-1.0) 08/07/16 19:25 AST 13 U/L (15-37) L 08/07/16 19:25 ALT 22 U/L (12-78) 08/07/16 19:25 Alkaline Phosphatase 122 U/L (45-117) H 08/07/16 19:25 Total Protein 7.0 g/dl (6.4-8.2) 08/07/16 19:25 Albumin 3.7 g/dl (3.4-5.0) 08/07/16 19:25 HOSPITAL COURSE: Date of Admission:08/07/16 Date of Discharge: 08/10/16 61 year-old woman with a PMH of HTN, OA, s/p right THR (07/21/16) s/p right prosthetic hip dislocation s/p open reduction with exchange of hip ball. Right prosthetic hip dislocation s/p open reduction with exchange of hip ball --doing well --afebrile, no leukocytosis, wound c/d/i --cleared by surgery for discharge Hypertension --BP well-controlled --continue valsartan, bystolic, amlodipine Minutes to complete discharge: 35 Discharge Summary Reason For Visit: RIGHT HIP PROTHESIS DISLOCATION Condition: Improved - Instructions Diet, Activity, Other Instructions: Physical therapy services will be arranged for you by our keycase assembler Iveth Lockett. If you have any questions please give her a call at [phone]. Follow up with your surgeon, Dr. Mccann, as scheduled. Return to the emergency department for any new or worsening symptoms. Referrals: Geovany Mccann MD [Primary Care Provider] - Disposition: HOME - Home Medications Comprehensive Discharge Medication List: Ambulatory Orders Nebivolol HCl [Bystolic] 10 mg PO DAILY 07/16/16 Olmesartan/Amlodipin/Hcthiazid [Tribenzor 40-5-25 mg Tablet] 1 each PO DAILY 10/27 Aspirin [ASA -] 325 mg PO DAILY@0800 #40 tablet 07/23/16 Multivitamins [Multivit ([facility] Formul[facility])] 1 tab PO DAILY tab 07/23/16 Pantoprazole Sodium [Protonix -] 40 mg PO DAILY #40 tablet.ec 07/23/16 Sennosides/Docusate Sodium [Pericolace -] 1 tablet PO BID tablet 07/23/16 Oxycodone HCl/Acetaminophen [Percocet 5-325 mg Tablet] 1 - 2 tab PO Q4H PRN #60 tablet MDD 8 08/10/16 This patient is new to me today: No Emergency Visit: Yes ED Registration Date: 08/07/16 Care time: The patient presented to the Emergency Department on the above date and was hospitalized for further evaluation of their emergent condition. Critical Care patient: No - Discharge Referral Referred to [facility] Med P.C.: No
== END 2016-08-10 11:23 | disposition home or self-care (01) | DRG 468 ==
LOC: FER 18:46 → FM/S 21:54
PROVIDERS: ADMIT Student in an Organized Health Care Education/Training Program; ATTEND Nurse Practitioner Acute Care
PROC: 0SPR0JZ Removal of Synthetic Substitute from Right Hip Joint, Femoral Surface, Open Approach (ICD-10-PCS; 2016-08-08)
PROC: 0SRR03Z Replacement of Right Hip Joint, Femoral Surface with Ceramic Synthetic Substitute, Open Approach (ICD-10-PCS; principal; 2016-08-08 16:42)
DX: T84.020A Dislocation of internal right hip prosthesis, initial encounter (principal); F17.200 Nicotine dependence, unspecified, uncomplicated; I10 Essential (primary) hypertension; Y83.8 Other surgical procedures as the cause of abnormal reaction of the patient, or of later complication, without mention of misadventure at the time of the procedure
CPT/HCPCS: 36415; 71010-TC; 72170-TC; 73502-TC-RT; 73700-TC-RT; 80048; 80053; 81003; 85025; 85027; 85610; 86850; 86900; 86901; 88300-TC; 93005; 94010; 94760; 97116-GP; 99285-25